=== PATIENT | male | born 1975 | race African-American/Black ===

== ENCOUNTER 2017-04-29 19:43 | Emergency (ER) | payer SELFPAY ==
[~2017-04-29] VITALS: Ht 188 cm; Wt 136.0 kg
[~2017-04-29 19:43] MED LIST: ALBU8I INH
[2017-04-29 19:44] VITALS: BP 132/77; PULSE 106; RESP 17; TEMP 102.8; O2SAT 98
--- NOTE | 2017-04-29 20:14 | PD ---
HPI Chief Complaint: Fever Time Seen by Provider: 20:11 Travel History International Travel<30 days: No Contact w/Intl Traveler<30days: No Traveled to known affect area: No History of Present Illness HPI 22-year-old male with no significant medical history presents to emergency department for evaluation of fever since this morning. Patient states he is felt body aches, chills, has had a mild headache. Denies any nuchal rigidity or other meningeal signs. Denies any nausea vomiting. No diarrhea. No urinary symptoms. He has no other symptoms to report. [facility] Past Medical History Medical History: Denies Significant Hx Diminished Hearing: No Past Surgical History Surgical History: No Previous Surgery Social History Alcohol Use: Yes Tobacco Use: No Substance Use: No Allergies-Medications (Allergen,Severity, Reaction): Coded Allergies: No Known Allergies (Unverified Allergy, Unknown, 04/29/17) Reported Meds & Prescriptions Reported Meds & Active Scripts Active No Active Prescriptions or Reported Medications Review of Systems Except as stated in HPI: all other systems reviewed are Neg Physical Exam Narrative GENERAL: Well-nourished male patient, ambulatory no acute distress. SKIN: Focused skin assessment warm/dry. HEAD: Atraumatic. Normocephalic. EYES: Pupils equal and round. No scleral icterus. No injection or drainage. ENT: No nasal bleeding or discharge. Erythema without exudate. Mucous membranes pink and moist. NECK: Trachea midline. No JVD. No nuchal rigidity. Patient is full range of motion of the cervical spine. CARDIOVASCULAR: Regular rate and rhythm. No murmur appreciated. RESPIRATORY: No accessory muscle use. Clear to auscultation. Breath sounds equal bilaterally. GASTROINTESTINAL: Abdomen soft, non-tender, nondistended. Hepatic and splenic margins not palpable. MUSCULOSKELETAL: No obvious deformities. No clubbing. No cyanosis. No edema. NEUROLOGICAL: Awake and alert. No obvious cranial nerve deficits. Motor grossly within normal limits. Normal speech. PSYCHIATRIC: Appropriate mood and affect; insight and judgment normal. Data Data Last Documented VS Vital Signs Date Time Temp Pulse Resp B/P (MAP) Pulse Ox O2 Delivery O2 Flow Rate FiO2 04/29/17 19:44 102.8 106 17 132/77 (95) 98 Room Air Orders Orders Acetaminophen (Tylenol) (04/29/17 20:15) Influenzae A/B Antigen (04/29/17 20:11) Complete Blood Count With Diff (04/29/17 21:12) Comprehensive Metabolic Panel (04/29/17 21:12) Lactic Acid Sepsis Protocol (04/29/17 21:12) Urinalysis - C+S If Indicated (04/29/17 21:12) Blood Culture (04/29/17 21:12) Chest, Single Ap (04/29/17 21:12) Blood Glucose (04/29/17 21:12) Ecg Monitoring (04/29/17 21:12) Iv Access Insert/Monitor (04/29/17 21:12) Oximetry (04/29/17 21:12) Oxygen Administration (04/29/17 21:12) Sodium Chlor 0.9% 1000 Ml Inj (Ns 1000 M (04/29/17 21:12) Sodium Chlor 0.9% 1000 Ml Inj (Ns 1000 M (04/29/17 21:12) Group A Rapid Strep Screen (04/29/17 21:12) Strep Culture (Group A) (04/29/17 21:28) Labs Laboratory Tests Test 04/29/17 21:28 White Blood Count 11.0 TH/MM3 Red Blood Count 5.51 MIL/MM3 Hemoglobin 15.5 GM/DL Hematocrit 45.4 % Mean Corpuscular Volume 82.3 FL Mean Corpuscular Hemoglobin 28.1 PG Mean Corpuscular Hemoglobin Concent 34.1 % Red Cell Distribution Width 13.1 % Platelet Count 216 TH/MM3 Mean Platelet Volume 7.8 FL Neutrophils (%) (Auto) 78.8 % Lymphocytes (%) (Auto) 12.4 % Monocytes (%) (Auto) 7.5 % Eosinophils (%) (Auto) 1.0 % Basophils (%) (Auto) 0.3 % Neutrophils # (Auto) 8.6 TH/MM3 Lymphocytes # (Auto) 1.4 TH/MM3 Monocytes # (Auto) 0.8 TH/MM3 Eosinophils # (Auto) 0.1 TH/MM3 Basophils # (Auto) 0.0 TH/MM3 CBC Comment DIFF FINAL Differential Comment Urine Color LIGHT-YELLOW Urine Turbidity CLEAR Urine pH 5.0 Urine Specific [place] 1.003 Urine Protein NEG mg/dL Urine Glucose (UA) NEG mg/dL Urine Ketones NEG mg/dL Urine Occult Blood NEG Urine Nitrite NEG Urine Bilirubin NEG Urine Urobilinogen LESS THAN 2.0 MG/DL Urine Leukocyte Esterase NEG Urine WBC 1 /hpf Microscopic Urinalysis Comment CATH-CULT NOT IND Blood Urea Nitrogen 13 MG/DL Creatinine 1.23 MG/DL Random Glucose 88 MG/DL Total Protein 7.5 GM/DL Albumin 3.6 GM/DL Calcium Level 9.0 MG/DL Alkaline Phosphatase 93 U/L Aspartate Amino Transf (AST/SGOT) 15 U/L Alanine Aminotransferase (ALT/SGPT) 19 U/L Total Bilirubin 0.4 MG/DL Sodium Level 136 MEQ/L Potassium Level 3.9 MEQ/L Chloride Level 104 MEQ/L Carbon Dioxide Level 27.2 MEQ/L Anion Gap 5 MEQ/L Estimat Glomerular Filtration Rate 79 ML/MIN Lactic Acid Level 1.0 mmol/L MDM Medical Decision Making Medical Screen Exam Complete: Yes Emergency Medical Condition: Yes Medical Record Reviewed: Yes Differential Diagnosis Influenza versus pharyngitis versus gastroenteritis versus viral syndrome versus pneumonia versus UTI Narrative Course 42-year-old male presents to emergency department evaluation of a fever. Patient appears overall well. He is febrile and tachycardic here in emergency department has no obvious findings on examination. He has no meningeal signs. Influenza screen is negative. Lab work and chest x-ray are ordered for further evaluations patient's symptoms. Patient is given 2 L normal saline IV fluid and Tylenol. Laboratory Tests Test 04/29/17 21:28 White Blood Count 11.0 TH/MM3 Red Blood Count 5.51 MIL/MM3 Hemoglobin 15.5 GM/DL Hematocrit 45.4 % Mean Corpuscular Volume 82.3 FL Mean Corpuscular Hemoglobin 28.1 PG Mean Corpuscular Hemoglobin Concent 34.1 % Red Cell Distribution Width 13.1 % Platelet Count 216 TH/MM3 Mean Platelet Volume 7.8 FL Neutrophils (%) (Auto) 78.8 % Lymphocytes (%) (Auto) 12.4 % Monocytes (%) (Auto) 7.5 % Eosinophils (%) (Auto) 1.0 % Basophils (%) (Auto) 0.3 % Neutrophils # (Auto) 8.6 TH/MM3 Lymphocytes # (Auto) 1.4 TH/MM3 Monocytes # (Auto) 0.8 TH/MM3 Eosinophils # (Auto) 0.1 TH/MM3 Basophils # (Auto) 0.0 TH/MM3 CBC Comment DIFF FINAL Differential Comment Urine Color LIGHT-YELLOW Urine Turbidity CLEAR Urine pH 5.0 Urine Specific [place] 1.003 Urine Protein NEG mg/dL Urine Glucose (UA) NEG mg/dL Urine Ketones NEG mg/dL Urine Occult Blood NEG Urine Nitrite NEG Urine Bilirubin NEG Urine Urobilinogen LESS THAN 2.0 MG/DL Urine Leukocyte Esterase NEG Urine WBC 1 /hpf Microscopic Urinalysis Comment CATH-CULT NOT IND Blood Urea Nitrogen 13 MG/DL Creatinine 1.23 MG/DL Random Glucose 88 MG/DL Total Protein 7.5 GM/DL Albumin 3.6 GM/DL Calcium Level 9.0 MG/DL Alkaline Phosphatase 93 U/L Aspartate Amino Transf (AST/SGOT) 15 U/L Alanine Aminotransferase (ALT/SGPT) 19 U/L Total Bilirubin 0.4 MG/DL Sodium Level 136 MEQ/L Potassium Level 3.9 MEQ/L Chloride Level 104 MEQ/L Carbon Dioxide Level 27.2 MEQ/L Anion Gap 5 MEQ/L Estimat Glomerular Filtration Rate 79 ML/MIN Lactic Acid Level 1.0 mmol/L Lab work is reviewed without acute concern. Chest x-rays without acute cardio pulmonary disease. I discussed the findings with my attending physician. Patient will be offered a Tamiflu prescription. He is counseled on care. He agrees to return immediately with any acute worsening of symptoms. Diagnosis Primary Impression: Flu-like symptoms Referrals: Primary Care Physician Patient Instructions: General Instructions, Influenza (ED) Departure Forms: Tests/Procedures, Work Release Enter return to work date: May 02, 2017 Additional Instructions: Rest Avoid prolonged bedrest Maintain adequate oral hydration Tylenol or ibuprofen as directed on the package as needed for fever Return immediately to the emergency department with any acute worsening symptoms Med/Other Pt SpecificInfo: Prescription(s) given Scripts Oseltamivir (Tamiflu) 75 Mg Cap 75 MG PO BID for Mgmt Viral Infection for 5 Days, #10 CAP 0 Refills Prov: Tawanna Avila 04/29/17 Disposition: 01 DISCHARGE HOME Condition: Stable Tawanna Avila Apr 29, 2017 20:14
[2017-04-29] MEDS ORDERED: ACETAMINOPHEN 500 MG CPLT PO ONE (20:15)
[2017-04-29] MEDS ORDERED: SODIUM CHLOR 0.9% 1000 ML INJ 1,000 ML IV ONE ×2 (21:12)
--- NOTE | 2017-04-29 21:33 | RADRPT ---
EXAM DATE/TIME: 04/29/2017 21:16 [place] COMPARISON: No previous studies available for comparison. INDICATIONS : Fever MEDICAL HISTORY : None. SURGICAL HISTORY : None. ENCOUNTER: Initial ACUITY: 1 day PAIN SCORE: 0/10 LOCATION: chest FINDINGS: A single view of the chest demonstrates the lungs to be symmetrically aerated without evidence of mas s, infiltrate or effusion. The cardiomediastinal contours are unremarkable. Osseous structures are intact. CONCLUSION: No acute disease. Bill Stephens MD on April 29, 2017 at 21:31 Board Certified Radiologist. This report was verified electronically.
[2017-04-29 21:52] LABS: BILIRUBIN, URINE NEG (NEG); BLOOD, URINE NEG (NEG); GLUCOSE,URINE NEG (NEG); KETONE, URINE NEG (NEG); NITRITE,URINE NEG (NEG); URINE COLOR LIGHT-YELLOW (YELLW/STRAW); URINE LEUKOCYTE ESTERASE NEG (NEG)
[2017-04-29 21:57] LABS: AUTOMATED NEUTROPHIL # 8.6 TH/MM3 (1.8-7.7); BASOPHIL % 0.3 % (0.0-2.0); EOSINOPHIL # 0.1 TH/MM3 (0-0.4); HEMATOCRIT 45.4 % (39.0-51.0); HEMOGLOBIN 15.5 GM/DL (13.0-17.0); LYMPH % 12.4 % (9.0-44.0); LYMPHOCYTE # 1.4 TH/MM3 (1.0-4.8); MEAN CELL VOLUME 82.3 FL (80.0-100.0); MEAN CORPUSCULAR HEMOGLOBIN 28.1 PG (27.0-34.0); MEAN CORPUSCULAR HGB CONC 34.1 % (32.0-36.0); MEAN PLATELET VOLUME 7.8 FL (7.0-11.0); MONO % 7.5 % (0.0-8.0); MONOCYTE # 0.8 TH/MM3 (0-0.9); NEUT % 78.8 % (16.0-70.0); PLATELET COUNT 216 TH/MM3 (150-450); RED BLOOD COUNT 5.51 MIL/MM3 (4.50-5.90); RED CELL DISTRIBUTION WIDTH 13.1 % (11.6-17.2)
[2017-04-29 22:11] LABS: ALBUMIN 3.6 GM/DL (3.4-5.0); AST (GOT) 15 U/L (15-37); BICARBONATE 27.2 MEQ/L (21.0-32.0); BLOOD UREA NITROGEN 13 MG/DL (7-18); CHLORIDE 104 MEQ/L (98-107); CREATININE 1.23 MG/DL (0.60-1.30); GLOMERULAR FILTRATION RATE 79 ML/MIN (>89); GLUCOSE,RANDOM 88 MG/DL (74-106); SODIUM (NA) 136 MEQ/L (136-145)
[2017-04-29 22:12] LABS: ALT (GPT) 19 U/L (12-78)
[2017-04-29 22:14] LABS: ALKALINE PHOSPHATASE 93 U/L (45-117); TOTAL BILIRUBIN ADULT 0.4 MG/DL (0.2-1.0); TOTAL PROTEIN 7.5 GM/DL (6.4-8.2)
[2017-04-29] MEDS ORDERED: OSEL75 PO (22:29)
[2017-04-29 23:02] VITALS: BP 136/74; TEMP 101.1
== END 2017-04-29 23:03 | disposition home or self-care (01) ==
LOC: NEPE 19:43
DX: R50.9 Fever, unspecified (principal); R51 Headache; R52 Pain, unspecified
CPT/HCPCS: 71045; 80053; 81001; 83605; 85025; 87040; 87081; 87804; 87880; 96360; 99284; J7030